=== PATIENT | female | born 1950 | race Caucasian/White ===

== ENCOUNTER → 2018-02-04 | Outpatient (CLI) | payer MEDICARE ==
[~2018-02-04] MED LIST: ASPI-496 PO; ATOR20TA PO; CHOL200024 PO; FOLI-17 PO; GABA300C10 PO; HYDR25TA6 PO; METO-99 PO; METO50TA82 PO; RAMI10CA PO
[2018-02-04 10:44] LABS: BASOPHILS # (AUTO) 0.04 x10^3/uL (0-0.1); BASOPHILS % (AUTO) 0 % (0-1); EOSINOPHILS # (AUTO) 0.11 x10^3/uL (0-0.4); EOSINOPHILS % (AUTO) 1 % (1-7); LYMPHOCYTES # (AUTO) 2.21 x10^3/uL (1-3.4); LYMPHOCYTES % (AUTO) 21 % (22-44); MD NO; MEAN CORPUSCULAR HEMOGLOBIN 30.2 pg (27.0-34.8); MEAN CORPUSCULAR HGB CONC 33.9 g/dL (32.4-35.8); MEAN CORPUSCULAR VOLUME 89.2 fL (80-100); MEAN PLATELET VOLUME 10.1 fL (7.4-10.4); MONOCYTES # (AUTO) 0.67 x10^3/uL (0.2-0.8); MONOCYTES % (AUTO) 6 % (2-9); NEUTROPHILS # (AUTO) 7.49 x10^3/uL (1.8-6.8); NEUTROPHILS % (AUTO) 71 % (42-75); PLATELET COUNT 302 x10^3/uL (130-400)
[2018-02-04 10:56] LABS: ALANINE AMINOTRANSFERASE 26 U/L (12-78); ALBUMIN 3.6 g/dL (3.4-5.0); ANION GAP 5 mmol/L (5-15); CALCIUM 8.9 mg/dL (8.5-10.1); CHLORIDE 104 mmol/L (98-107); CREATININE 0.79 mg/dL (0.55-1.02)
[2018-02-04 10:58] LABS: ALKALINE PHOSPHATASE 107 U/L (45-117); BILIRUBIN,TOTAL 0.7 mg/dL (0.2-1.0); TOTAL PROTEIN 7.1 g/dL (6.4-8.2)
[2018-02-04 11:06] LABS: INTERNATIONAL NORMALIZED RATIO 0.96 (0.93-1.1)
== END | disposition home or self-care (01) ==
LOC: STAR 09:22
PROVIDERS: ATTEND Specialist
DX: Z01.818 Encounter for other preprocedural examination (principal); C54.1 Malignant neoplasm of endometrium
CPT/HCPCS: 36415; 71046; 80053; 85025; 85610; 85730; 86304; 93005

== ENCOUNTER 2018-03-04 05:57 | Observation (INO) | payer MEDICARE ==
[~2018-03-04] VITALS: Ht 165.1 cm; Wt 109.4 kg
[~2018-03-04 05:57] MED LIST changes: -RAMI10CA PO; +RAMI10CA59 PO
[2018-03-04] MEDS ORDERED: LACTATED RINGERS 1,000 ML IV SCH (06:23)
[2018-03-04] MEDS ORDERED: INDOCYANINE GREEN 25 MG VIAL ONE (06:46)
[2018-03-04] MEDS ORDERED: BUPIVACAINE/PF-EPI 0.25% 1:200K ONE (06:47)
[2018-03-04] MEDS ORDERED: HEPARIN 1,000 UNITS/ML, 10ML ONE (06:47)
[2018-03-04] MEDS ORDERED: FENTANYL PF 250 MCG/5ML ONE (07:09)
[2018-03-04] MEDS ORDERED: MIDAZOLAM 1 MG/ML, 2ML ONE (07:09)
[2018-03-04] MEDS ORDERED: ACETAMINOPHEN 500 MG TABLET ONE (07:22)
[2018-03-04] MEDS ORDERED: GABAPENTIN 300 MG CAPSULE ONE (07:23)
[2018-03-04] MEDS ORDERED: ACETAMINOPHEN 500 MG TABLET PO ONE (07:30)
[2018-03-04] MEDS ORDERED: GABAPENTIN 300 MG CAPSULE PO ONE (07:30)
[2018-03-04] MEDS ORDERED: FENTANYL PF 100 MCG/2ML IV PRN (08:00)
[2018-03-04] MEDS ORDERED: OXYcodone 5 MG/5 ML ORAL.SOL UDC PO PRN (08:00)
[2018-03-04] MEDS ORDERED: ONDANSETRON 2MG/ML, 2ML IV PRN ×2 (08:00→17:30)
[2018-03-04] MEDS ORDERED: hydrALAzine 20 MG/ML, 1ML IV PRN (08:00)
[2018-03-04] MEDS ORDERED: LABETALOL 5MG/ML, 20ML IV PRN (08:00)
[2018-03-04] MEDS ORDERED: ROCURONIUM 10MG/ML,5ML ONE (08:38)
[2018-03-04] MEDS ORDERED: GLYCOPYRROLATE 0.2MG/1ML, 5ML ONE (08:38)
[2018-03-04] MEDS ORDERED: NEOSTIGMINE 1 MG/ML, 10ML ONE (08:38)
[2018-03-04] MEDS ORDERED: ONDANSETRON 2MG/ML, 2ML ONE ×2 (08:38→10:16)
[2018-03-04] MEDS ORDERED: DEXAMETHASONE 4 MG/ML, 1ML ONE (08:38)
[2018-03-04] MEDS ORDERED: SUCCINYLCHOLINE 20 MG/ML, 10ML ONE (08:38)
[2018-03-04] MEDS ORDERED: PROPOFOL 10 MG/ML, 20ML ONE (08:38)
[2018-03-04] MEDS ORDERED: CEFAZOLIN 1,000 MG ONE (08:38)
[2018-03-04] MEDS ORDERED: HYDROmorphone 2 MG/ML, 1ML ONE (10:16)
[2018-03-04] MEDS: HYDROmorphone 1 MG/ML, 1ML IV PRN ×3 (10:19→10:40)
[2018-03-04] MEDS ORDERED: PROMETHAZINE 25 MG/ML, 1ML IV PRN (10:30)
[2018-03-04] MEDS ORDERED: KETOROLAC 30 MG/1 ML ONE (10:43)
[2018-03-04] MEDS ORDERED: KETOROLAC 30 MG/1 ML IVPush ONE (11:00)
[2018-03-04] MEDS ORDERED: EPHEDRINE 50 MG/ML, 1ML ONE (15:14)
[2018-03-04] MEDS ORDERED: OXYcodone/APAP 7.5/325MG TABLET PO PRN (17:30)
[2018-03-04 18:13] VITALS: BP 147/82
[2018-03-04] MEDS: KETOROLAC 30 MG/1 ML IV PRN (19:26)
[2018-03-04 20:15] VITALS: BP 110/65
[2018-03-04] MEDS ORDERED: ATORVASTATIN 20 MG TABLET PO SCH (21:00)
[2018-03-04] MEDS ORDERED: RAMIPRIL 10 MG CAPSULE PO SCH (21:00)
[2018-03-04] MEDS ORDERED: METOPROLOL TARTRATE 50 MG TABLET PO SCH (21:00)
[2018-03-04 23:46] VITALS: BP 144/77
[2018-03-05] MEDS: KETOROLAC 30 MG/1 ML IV PRN (02:14)
[2018-03-05 03:35] VITALS: BP 114/69
[2018-03-05 05:02] LABS: BASOPHILS # (AUTO) 0.01 x10^3/uL (0-0.1); BASOPHILS % (AUTO) 0 % (0-1); EOSINOPHILS % (AUTO) 0 % (1-7); LYMPHOCYTES # (AUTO) 1.17 x10^3/uL (1-3.4); LYMPHOCYTES % (AUTO) 7 % (22-44); MD NO; MEAN CORPUSCULAR HGB CONC 34.1 g/dL (32.4-35.8); MEAN PLATELET VOLUME 10.3 fL (7.4-10.4); MONOCYTES # (AUTO) 0.74 x10^3/uL (0.2-0.8); MONOCYTES % (AUTO) 5 % (2-9); NEUTROPHILS # (AUTO) 13.99 x10^3/uL (1.8-6.8); NEUTROPHILS % (AUTO) 88 % (42-75); PLATELET COUNT 251 x10^3/uL (130-400); RED BLOOD COUNT 4.37 x10^6/uL (3.82-5.3); RED CELL DISTRIBUTION WIDTH 13.4 % (9.6-15.2)
[2018-03-05 05:06] LABS: ANION GAP 10 mmol/L (5-15); CALCIUM 8.1 mg/dL (8.5-10.1); CHLORIDE 96 mmol/L (98-107); CREATININE 0.85 mg/dL (0.55-1.02)
[2018-03-05] MEDS ORDERED: ASPIRIN 81 MG TABLET EC PO SCH (06:00)
[2018-03-05 07:40] VITALS: BP 103/56
[2018-03-05] MEDS ORDERED: OXYC-306 PO (08:24)
[2018-03-05] MEDS ORDERED: ONDA4TAB7 PO (08:25)
[2018-03-05] MEDS: GABAPENTIN 300 MG CAPSULE PO SCH ×2 (08:34→08:37)
[2018-03-05 08:41] VITALS: BP 124/59
[2018-03-05] MEDS ORDERED: HYDROCHLOROTHIAZIDE 25 MG TABLET PO SCH (09:00)
[2018-03-05] MEDS ORDERED: CHOLECALCIFEROL 1,000 UNIT TABLET PO SCH (09:00)
[2018-03-05] MEDS ORDERED: FOLIC ACID 1 MG TABLET PO SCH (09:00)
[2018-03-05] MEDS ORDERED: METOPROLOL TARTRATE 100 MG TABLET PO SCH (09:00)
== END 2018-03-05 10:08 | disposition home or self-care (01) ==
LOC: OUT 05:57 → 4NOR 16:53 → OUT 17:04 → 4NOR 17:05 → DCLOUNGE 03-05 09:51
PROVIDERS: ADMIT Specialist; ATTEND Specialist
DX: C54.1 Malignant neoplasm of endometrium (principal); N88.8 Other specified noninflammatory disorders of cervix uteri; N80.1 Endometriosis of ovary; N83.8 Other noninflammatory disorders of ovary, fallopian tube and broad ligament; I10 Essential (primary) hypertension; E11.9 Type 2 diabetes mellitus without complications; I25.10 Atherosclerotic heart disease of native coronary artery without angina pectoris
CPT/HCPCS: 36415; 38571; 38792; 58552; 80048; 82962; 85025; 86850; 86900; 88305; 88309; 88331; 96374; 96376; G0378; J0330; J0690; J1100; J1170; J1885; J2250; J2405; J2704; J2710; J3010; J3490; J7120; J1644